=== PATIENT | female | born 2000 ===

== ENCOUNTER 2021-04-04 08:04 | Emergency (ER) | payer BC, SELFPAY ==
[2021-04-04 08:07] VITALS: BP 137/80; PULSE 84; RESP 20; TEMP 36.5; O2SAT 97
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
== END 2021-04-04 08:30 | disposition home or self-care (01) ==
LOC: ER 08:34
PROVIDERS: Emergency Provider Student in an Organized Health Care Education/Training Program
DX: S06.0X0A Concussion without loss of consciousness, initial encounter (principal); M79.10 Myalgia, unspecified site; V92.06XA Drowning and submersion due to fall off (nonpowered) inflatable craft, initial encounter; Y93.16 Activity, rowing, canoeing, kayaking, rafting and tubing
CPT/HCPCS: 99282; 99283

== ENCOUNTER 2023-08-09 14:26 | Outpatient (REF) | payer OTHER, SELFPAY ==
[2023-08-09 20:51] LABS: Bilirubin Negative (Negative); Blood Large (Negative); Clarity Sl Cloudy (Clear); Glucose Negative (Negative); Ketones Negative (Negative); Leukocyte Esterase Large (Negative); Nitrite Positive (Negative); Specific Gravity 1.025 (1.005-1.025); Urobilinogen 0.2 mg/dL (Up to 0.2)
[2023-08-09 20:56] LABS: Bacteria Few HPF (Negative); C & S Indicated? Yes; Casts Negative LPF (Negative); Crystals Negative HPF (Negative); Epithelial Cells Rare HPF (Negative); Mucus Negative (Negative)
== END 2023-08-09 14:27 | disposition home or self-care (01) ==
LOC: LBN 14:26
PROVIDERS: Visit Provider Physician Assistant
DX: N39.0 Urinary tract infection, site not specified (principal)
CPT/HCPCS: 87077; 81003; 81015; 87086; 87186

== ENCOUNTER 2023-09-11 16:37 | Outpatient (REF) | payer OTHER, SELFPAY ==
[2023-09-13 14:39] LABS: Chlamydia Result Negative (Negative); GC Result Negative (Negative)
== END 2023-09-11 16:38 | disposition home or self-care (01) ==
LOC: LBN 16:37
PROVIDERS: Visit Provider Physician Assistant
DX: Z11.3 Encounter for screening for infections with a predominantly sexual mode of transmission (principal); R30.0 Dysuria; N39.0 Urinary tract infection, site not specified
CPT/HCPCS: 87491; 87591; 87086; 87480; 87510; 87660

== ENCOUNTER 2024-04-08 11:12 | Outpatient (REF) | payer OTHER, SELFPAY ==
--- NOTE | 2024-04-08 10:30 | PAPFT_PTH ---
PATIENT: Yessenia Rosado LOC: [facility] U#:[id number] AGE/SX: 24/F ROOM: RE04/08/[address]: Sanket Foley DNP : 2000 BED: DIS: 04/08/2024 SPEC #: [id number] RECD: 04/08/24 13:15 STATUS: DARIUS REPedro Luis #: [id number] ZENY: 04/08/24 10:[address]: Sanket Chan DEPT: [facility] Cytology RECD BY: Lizbeth Mistry Tissues: 1 - CX/ENDOCX FOR PAP SMEARS Procedures: PAP THIN PREP/[facility] Screening HPV DNA PROBE Comments: [id number] (HPV 16 & 18/45)
== END 2024-04-08 11:13 | disposition home or self-care (01) ==
LOC: LBN 11:12
PROVIDERS: PCP Nurse Practitioner Family; Visit Provider Nurse Practitioner Family
DX: Z00.00 Encounter for general adult medical examination without abnormal findings (principal); R19.7 Diarrhea, unspecified; L70.9 Acne, unspecified
CPT/HCPCS: 88142; 87624

== ENCOUNTER 2024-05-04 02:27 | Outpatient (CLI) | payer OTHER, SELFPAY ==
[2024-05-04 12:18] LABS: HCT 40.9 % (36.0-46.0); HGB 13.3 g/dL (11.2-15.7); MCH 28.5 pg (27.0-33.0); MCHC 32.5 % (32.0-36.0); MCV 88 fL (80-95); Platelet Count 297 10^3/uL (130-400); RBC 4.66 10^6/uL (3.93-5.22); RDW 13.1 % (11.7-14.6); RDW-SD 41.9 fL; WBC 8.16 10^3/uL (4.4-10.8)
[2024-05-05 13:36] LABS: IgA 107 mg/dL (85-499); Interpretation (See Note); Tissue Transglutaminase IgA <4.0 CU (<20.0)
== END 2024-05-04 02:28 | disposition home or self-care (01) ==
LOC: LOS 02:27
PROVIDERS: PCP Nurse Practitioner Family; Visit Provider Nurse Practitioner Family
DX: R19.7 Diarrhea, unspecified (principal); L70.9 Acne, unspecified; Z00.00 Encounter for general adult medical examination without abnormal findings
CPT/HCPCS: 36415; 82784; 83516; 85027

== ENCOUNTER 2025-09-10 13:12 | Outpatient (REF) | payer OTHER, BC, SELFPAY ==
[2025-09-10 15:29] LABS: HCT 41.6 % (36.0-46.0); HGB 13.4 g/dL (11.2-15.7); MCH 27.9 pg (27.0-33.0); MCHC 32.2 % (32.0-36.0); MCV 87 fL (80-95); MPV 10.2 fL (8.0-11.0); Platelet Count 245 10^3/uL (130-400); RBC 4.80 10^6/uL (3.93-5.22); RDW 14.5 % (11.7-14.6); RDW-SD 46.3 fL; WBC 6.99 10^3/uL (4.4-10.8)
[2025-09-10 15:54] LABS: Iron 57 ug/dL (50-170)
[2025-09-10 16:06] LABS: Hemoglobin A1C 5.0 % (<5.7)
[2025-09-10 17:22] LABS: Ferritin 94 ng/mL (7-271); Vitamin D 25 Total 23 ng/mL (30-100)
[2025-09-10 17:29] LABS: Cholesterol 182 mg/dL (<200); HDL Cholesterol 58 mg/dL (>40)
== END 2025-09-10 13:13 | disposition home or self-care (01) ==
LOC: NCHCN 13:12
PROVIDERS: PCP Physician Assistant; Visit Provider Physician Assistant
DX: D50.9 Iron deficiency anemia, unspecified (principal); H53.9 Unspecified visual disturbance; D64.9 Anemia, unspecified; E55.9 Vitamin D deficiency, unspecified; Z13.220 Encounter for screening for lipoid disorders
CPT/HCPCS: 80061; 82306; 85027; 82728; 83036; 83540